=== PATIENT | female | born 1975 | race African-American/Black ===

== ENCOUNTER 2024-09-13 16:57 | Emergency (ER) | payer OTHER ==
[~2024-09-13] VITALS: Ht 172.7 cm; Wt 135.0 kg
[2024-09-13 18:18] VITALS: BP 128/54; PULSE 92; RESP 18; TEMP 97.9; O2SAT 98
[2024-09-13 19:07] LABS: Basophils # (auto) 0 10 ^3/uL (0-0.2); Basophils % (auto) 0.4 % (0.0-2.0); Eosinophils # (auto) 0.1 10 ^3/uL (0-0.8); Eosinophils % (auto) 2.1 % (0.0-7.0); Hematocrit 37.9 % (36.0-46.0); Hemoglobin 12.5 g/dL (12.2-16.2); Lymphocytes # (auto) 2.2 10 ^3/uL (0.4-5.4); Lymphocytes % (auto) 31.8 % (10.0-50.0); Mean Corpuscular Hemoglobin 29.2 pg (28.0-32.0); Mean Corpuscular Hgb Conc. 32.9 g/dL (32.0-36.0); Mean Corpuscular Volume 88.7 fL (80.0-100.0); Monocytes # (auto) 0.5 10 ^3/uL (0-1.3); Monocytes % (auto) 7.5 % (0.0-12.0); Neutrophils # (auto) 4.1 10 ^3/uL (1.6-8.6); Neutrophils % (auto) 58.2 % (37.0-80.0); Nucleated Red Blood Cells % 0.1 %; Platelet Count (auto) 238 10^3/uL (140-450); Red Blood Cells 4.28 10^6/uL (4.0-5.20); Red Cell Distribution Width 13.7 % (11.8-14.3)
--- NOTE | 2024-09-13 19:14 | DVH ---
EXAMINATIONS: 3 views of the thoracic spine 2 views of the lumbar spine CLINICAL HISTORY: pain COMPARISON: None Findings and impression: Mild s-shaped thoracolumbar scoliosis may be in part related to patient positioning. Otherwise no grossly displaced fractures or subluxations of the thoracic or lumbar spine are evident on the provided views. Vertebral body heights appear relatively maintained. The sacroiliac joints are symmetric. T-shaped intrauterine device noted. If there is persistent concern for injury, CT may be obtained to further evaluate.
[2024-09-13 19:22] LABS: Alanine Aminotransferase 18 U/L (7-40); Albumin 4.6 g/dL (3.2-4.8); Alkaline Phosphatase 75 U/L (46-116); Anion Gap 7 (5-15); Aspartate Aminotransferase 17 U/L (13-40); BUN/Creatinine Ratio 15.8 (10.0-20.0); Blood Urea Nitrogen 12 mg/dL (9-23); Calcium 9.8 mg/dL (8.7-10.4); Carbon Dioxide 30 mmol/L (20-31); Chloride 100 mmol/L (98-107); Glucose 94 mg/dL (74-106); Magnesium 1.9 mg/dL (1.6-2.6); Sodium 137 mmol/L (136-145); Total Protein 7.3 g/dL (5.7-8.2)
[2024-09-13 19:23] LABS: Bilirubin, Total 0.3 mg/dL (0.2-1.0)
[2024-09-13 19:31] LABS: Potassium 3.5 mmol/L (3.5-5.1)
[2024-09-13 19:37] LABS: Urine Bacteria FEW /hpf (None Seen); Urine Blood Negative /uL (Negative); Urine Clarity Clear (Clear); Urine Color Light-Yellow (Yellow); Urine Protein, UAD Negative (Negative); Urine Squamous Epithelial Cell FEW /hpf (<5); Urine Urobilinogen Normal (Negative); Urine WBC 3 /HPF (0-5)
--- NOTE | 2024-09-13 19:38 | ED.PDOC ---
Back pain HPI HPI Comments Pt presents to the ER with a C/C of body pain x 1 month. Patient reports a month and a half ago she was positive for COVID. Complaining of mid to low back pain was scheduled for MRI with her PCP she said it is several weeks out and reports concern. Pt reports pain 8/10 at this time, denies any injury. Denies any SOB, CP, N/V or other symptoms Chief Complaint: Body Pain Time Seen by MD: 18:08 Reviewed Notes: Nurses Notes, Medications, Allergies Allergies: Coded Allergies: Sulfa Antibiotics (Verified Allergy, Unknown, 09/13/24) Information Source: Patient Mode of Arrival: Ambulatory Past Medical History PAST MEDICAL HISTORY: Denies Surgical History: Denies all surgeries VALUE ANALYST History: No Pertinent VALUE ANALYST History Constitutional: reports: malaise; denies: chills, diaphoresis, fatigue, fever, sweats, weakness, others EENTM: denies: blurred vision, double vision, ear bleeding, ear discharge, ear drainage, ear pain, ear ringing, eye pain, eye redness, hearing loss, mouth pain, mouth swelling, nasal discharge, nose bleeding, nose congestion, nose pain, photophobia, tearing, throat pain, throat swelling, voice changes, others Respiratory: denies: cough, hemoptysis, orthopnea, SOB at rest, shortness of breath, SOB with excertion, stridor, wheezing, others Cardiovascular: denies: chest pain, dizzy spells, diaphoresis, Dyspnea on exertion, edema, irregular heart beat, left arm pain, lightheadedness, palpitations, PND, syncope, others Gastrointestinal: denies: abdomen distended, abdominal pain, blood streaked bowels, constipated, diarrhea, dysphagia, difficulty swallowing, hematemesis, melena, nausea, poor appetite, poor fluid intake, rectal bleeding, rectal pain, vomiting, others Genitourinary: denies: abnormal vagina bleeding, burning, dyspareunia, dysuria, flank pain, frequency, hematuria, incontinence, pain, , vagina discharge, urgency, others Neurological: denies: dizziness, fainting, headache, left sided numbness, left sided weakness, numbness, paresthesia, pre-existing deficit, right sided numbness, right sided weakness, seizure, speech problems, tingling, tremors, weakness, others Musculoskeletal: reports: back pain; denies: gout, joint pain, joint swelling, muscle pain, muscle stiffness, neck pain, others Integumetry: denies: bruises, change in color, change in hair/nails, dryness, laceration, lesions, lumps, rash, wounds, others Allergic/Immunocompromised: denies: Difficulty Healing, Frequent Infections, Hives, Itching, others Hematologic/Lymphatic: denies: anemia, blood clots, easy bleeding, easy bruising, swollen glands, others Endocrine: denies: excessive hunger, excessive sweating, excessive thirst, excessive urination, flushing, intolerance to cold, intolerance to heat, unexplained weight gain, unexplained weight loss, others Psychiatric: denies: anxiety, bipolar disorder, depression, hopeless, panic disorder, schizophrenia, sleepless, suicidal, others Physical Exam General Appearance: No Apparent Distress, Normal HEENT: Normal ENT Inspection, Pharynx Normal, TMs Normal Neck: Full Range of Motion, Non-Tender Respiratory: Chest Non-Tender, Lungs Clear, No Accessory Muscle Use, No Respiratory Distress, Normal Breath Sounds Cardiovascular: No Edema, No JVD, No Murmur, No Gallop, Normal Peripheral Pulses, Regular Rate/Rhythm Breast Exam: Deferred Gastrointestinal: No Organomegaly, Non Tender, No Pulsatile Mass, Normal Bowel Sounds, Soft Genitalia: Deferred Pelvic: Deferred Rectal: Deferred Extremities: No calf tenderness, Normal capillary refill, Normal inspection, Normal range of motion, Non-tender, No pedal edema Musculoskeletal : Apperance: Normal Neurologic: Alert, power press tender II-XII nml as Tested, No Motor Deficits, Normal Affect, Normal Mood, No Sensory Deficits Cerebellar Function: Normal Reflexes: Normal Skin: Dry, Normal Color, Warm Lymphatic: No Adenopathy Was a procedure done? Was a procedure done?: No Back Pain Differential Dx Differential Diagnosis: Fracture, Musculoskeletal Pain X-Ray, Labs, Meds, VS Vital Signs Date Time Temp Pulse Resp B/P (MAP) Pulse Ox O2 Delivery O2 Flow Rate FiO2 09/13/24 18:18 97.9 92 18 128/54 (78) 98 97.9 09/13/24 18:18 92 18 98 Room Air 09/13/24 17:41 97.9 92 18 128/54 (78) 98 Lab Test 09/13/24 18:47 09/13/24 18:22 Range/Units White Blood Count 7.0 4.4-10.8 10^3/uL Red Blood Count 4.28 4.0-5.20 10^6/uL Hemoglobin 12.5 12.2-16.2 g/dL Hematocrit 37.9 36.0-46.0 % Mean Corpuscular Volume 88.7 80.0-100.0 fL Mean Corpuscular Hemoglobin 29.2 28.0-32.0 pg Mean Corpuscular Hemoglobin Concent 32.9 32.0-36.0 g/dL Red Cell Distribution Width 13.7 11.8-14.3 % Platelet Count 238 140-450 10^3/uL Mean Platelet Volume 9.4 6.9-10.8 fL Neutrophils (%) (Auto) 58.2 37.0-80.0 % Lymphocytes (%) (Auto) 31.8 10.0-50.0 % Monocytes (%) (Auto) 7.5 0.0-12.0 % Eosinophils (%) (Auto) 2.1 0.0-7.0 % Basophils (%) (Auto) 0.4 0.0-2.0 % Neutrophils # (Auto) 4.1 1.6-8.6 10 ^3/uL Lymphocytes # (Auto) 2.2 0.4-5.4 10 ^3/uL Monocytes # (Auto) 0.5 0-1.3 10 ^3/uL Eosinophils # (Auto) 0.1 0-0.8 10 ^3/uL Basophils # (Auto) 0 0-0.2 10 ^3/uL Nucleated Red Blood Cells 0.1 % Erythrocyte Sedimentation Rate 13 0-20 mm/hr Sodium Level 137 136-145 mmol/L Potassium Level 3.5 3.5-5.1 mmol/L Chloride Level 100 98-107 mmol/L Carbon Dioxide Level 30 20-31 mmol/L Anion Gap 7 5-15 Blood Urea Nitrogen 12 9-23 mg/dL Creatinine 0.76 0.550-1.02 mg/dL Glomerular Filtration Rate Calc 97 >90 mL/min BUN/Creatinine Ratio 15.8 10.0-20.0 Serum Glucose 94 74-106 mg/dL Calcium Level 9.8 8.7-10.4 mg/dL Magnesium Level 1.9 1.6-2.6 mg/dL Total Bilirubin 0.3 0.2-1.0 mg/dL Aspartate Amino Transferase (AST) 17 13-40 U/L Alanine Aminotransferase (ALT) 18 7-40 U/L Alkaline Phosphatase 75 46-116 U/L Total Protein 7.3 5.7-8.2 g/dL Albumin 4.6 3.2-4.8 g/dL Urine Color Light-yellow Yellow Urine Clarity Clear Clear Urine pH 7.0 5.0-9.0 Urine Specific [place] 1.010 1.001-1.035 Urine Protein Negative Negative Urine Ketones Negative Negative Urine Blood Negative Negative /uL Urine Nitrite Negative Negative Urine Bilirubin Negative Negative Urine Urobilinogen Normal Negative mg/dL Urine Leukocyte Esterase Negative Negative /uL Urine RBC 1 0 - 4 /hpf Urine Microscopic WBC 3 0-5 /HPF Urine Squamous Epithelial Cells Few <5 /hpf Urine Bacteria Few H None Seen /hpf Urine Glucose Normal Normal mg/dL Current Medications Medications (Trade) Dose Ordered Sig/Kavon Route Start Time Stop Time Status Last Admin Ketorolac Tromethamine (Toradol Injection) 60 mg ONCE ONCE IM 09/13/24 19:45 09/13/24 19:46 DC 09/13/24 19:43 X-Ray, Labs, Meds, VS Comment Thoracic spine shows mild scoliosis. Lumbar spine no acute fractures or osseous lesions. Subluxations throughout the spine. Advised patient to follow up with her PCP for schedule an MRI if symptoms persist. Lab work within normal limits no abnormal findings. Likely acute post COVID syndrome. States PCP prescribed vitamin-D advised to continue with her PCPs plan of care. Back up within 1-2 days. Advised to rest increase p.o. fluids with electrolytes ER return precautions given patient indicates understanding and agrees with discharge plan of care. Time of 1ST Reevaluation: 20:23 Reevaluation 1ST: Improved Patient Education/Counseling: Diagnosis, Treatment, Prognosis, Need For Follow Up Family Education/Counseling: No Family Present Departure 1 Departure Time of Disposition: 20:06 Impression: Primary Impression: Post-acute COVID-19 syndrome Additional Impressions: Low back strain Qualified Codes: S39.012A - Strain of muscle, fascia and tendon of lower back, initial encounter Strain of thoracic back region Disposition: HOME / SELF CARE / HOMELESS Condition: Stable Discharged With: Self Critical Care Note Critical Care Time?: No Stability Stability form required: EVENS Mota Sep 13, 2024 19:38
[2024-09-13] MEDS: KETOROLAC TROMETH 60MG/2ML VIAL IM ONE (19:43)
[2024-09-13 19:44] LABS: Erythrocyte Sedimentation Rate 13 mm/hr (0-20)
== END 2024-09-13 20:17 | disposition home or self-care (01) ==
LOC: ER 16:57
DX: U07.1 COVID-19 (principal); S29.012A Strain of muscle and tendon of back wall of thorax, initial encounter; S39.012A Strain of muscle, fascia and tendon of lower back, initial encounter; Z79.899 Other long term (current) drug therapy; Z88.2 Allergy status to sulfonamides; Y93.89 Activity, other specified; X58.XXXA Exposure to other specified factors, initial encounter; Y92.89 Other specified places as the place of occurrence of the external cause; Y99.8 Other external cause status
CPT/HCPCS: 36415; 72070; 72100; 80053; 81001; 83735; 85025; 85652; 96372; 99284; J1885

== ENCOUNTER 2024-10-14 05:49 | Inpatient (IN) | payer OTHER ==
[~2024-10-14] VITALS: Ht 172.7 cm; Wt 136.0 kg
--- NOTE | 2024-10-14 06:36 | ED.PDOC ---
Musculoskeletal HPI Comments 49 y.o female with PMHx of HTN, hypothyroidism and PreDM, presents to the ED for a chief complaint of bilateral lower extremity swelling that started last night. Patient report recently being placed on Clonidine by her PCP but is also on hydrochlorothiazide. Patient also complains of palpitations, described as "heart skipping a beat" associated with SOB that has been ongoing for a couple of days. Patient denies any chest pain, fever, chills, nausea, vomiting, abdominal pain, back pain, or leg pain. Chief Complaint: Extremity Swelling Time Seen by MD: 06:14 Reviewed Notes: Nurses Notes, Medications, Allergies Allergies: Coded Allergies: Sulfa Antibiotics (Verified Allergy, Unknown, 09/13/24) Information Source: Patient Mode of Arrival: Ambulatory Location: Bilateral Extremity Location: Leg Timing: Hours Severity: Moderate Able to Move Extremity: Yes Bear Weight: Fully Mechanism: None Circumstances: Spontaneous Onset of Symptoms: Spontaneous Symptoms: Swelling DVT Risk Factors: NONE Associated signs and symptoms: Swelling, SOB Past Medical History PAST MEDICAL HISTORY: DM (pre ), HTN, Thyroid Surgical History: Cholecystectomy STRIPPER BLACK AND WHITE History: No Pertinent STRIP[employer] BLACK [employer] WHITE History Family History Family History: Reviewed,noncontributory to illness Social History Smoker: Non-Smoker Alcohol: Denies ETOH Use Drugs: Denies Drug Use Lives In: Home Constitutional: denies: chills, diaphoresis, fatigue, fever, malaise, sweats, weakness, others EENTM: denies: blurred vision, double vision, ear bleeding, ear discharge, ear drainage, ear pain, ear ringing, eye pain, eye redness, hearing loss, mouth pain, mouth swelling, nasal discharge, nose bleeding, nose congestion, nose pain, photophobia, tearing, throat pain, throat swelling, voice changes, others Respiratory: reports: SOB at rest, shortness of breath; denies: cough, hemoptysis, orthopnea, SOB with excertion, stridor, wheezing, others Cardiovascular: reports: palpitations; denies: chest pain, dizzy spells, diaphoresis, Dyspnea on exertion, edema, irregular heart beat, left arm pain, lightheadedness, PND, syncope, others Gastrointestinal: denies: abdomen distended, abdominal pain, blood streaked bowels, constipated, diarrhea, dysphagia, difficulty swallowing, hematemesis, melena, nausea, poor appetite, poor fluid intake, rectal bleeding, rectal pain, vomiting, others Genitourinary: denies: abnormal vagina bleeding, burning, dyspareunia, dysuria, flank pain, frequency, hematuria, incontinence, pain, , vagina discharge, urgency, others Neurological: denies: dizziness, fainting, headache, left sided numbness, left sided weakness, numbness, paresthesia, pre-existing deficit, right sided numbness, right sided weakness, seizure, speech problems, tingling, tremors, weakness, others Musculoskeletal: reports: others (leg swelling ); denies: back pain, gout, joint pain, joint swelling, muscle pain, muscle stiffness, neck pain Integumetry: denies: bruises, change in color, change in hair/nails, dryness, laceration, lesions, lumps, rash, wounds, others Allergic/Immunocompromised: denies: Difficulty Healing, Frequent Infections, Hives, Itching, others Hematologic/Lymphatic: denies: anemia, blood clots, easy bleeding, easy bruising, swollen glands, others Endocrine: denies: excessive hunger, excessive sweating, excessive thirst, excessive urination, flushing, intolerance to cold, intolerance to heat, unexplained weight gain, unexplained weight loss, others Psychiatric: denies: anxiety, bipolar disorder, depression, hopeless, panic disorder, schizophrenia, sleepless, suicidal, others All Other Systems: Reviewed and Negative Physical Exam General Appearance: Moderate Distress HEENT: Normal ENT Inspection, Pharynx Normal, TMs Normal Neck: Full Range of Motion, Non-Tender, Normal, Normal Inspection Respiratory: Chest Non-Tender, Lungs Clear, No Accessory Muscle Use, No Respiratory Distress, Normal Breath Sounds Cardiovascular: No Edema, No JVD, No Murmur, No Gallop, Normal Peripheral Pulses, Regular Rate/Rhythm Breast Exam: Deferred Gastrointestinal: No Organomegaly, Non Tender, No Pulsatile Mass, Normal Bowel Sounds, Soft Genitalia: Deferred Pelvic: Deferred Rectal: Deferred Extremities: No calf tenderness, Normal range of motion, No pedal edema, Swelling (1+ pitting) Musculoskeletal : Apperance: Normal Neurologic: Alert, web content manager II-XII nml as Tested, No Motor Deficits, Normal Affect, Normal Mood, No Sensory Deficits Cerebellar Function: Normal Reflexes: Normal Skin: Dry, Normal Color, Warm Peripheral Pulses: 3+ Radial (R), 3+ Radial (L) Lymphatic: No Adenopathy Was a procedure done? Was a procedure done?: No EKG EKG : Pulse Rate (adult): 75 Cardiac Rhythm: NSR Differential Diagnosis EXT Differential Diagnosis: Cellulitis, CHF, Deep Vein Thrombosis, Sprain, Gout X-Ray, Labs, Meds, VS Vital Signs Date Time Temp Pulse Resp B/P (MAP) Pulse Ox O2 Delivery O2 Flow Rate FiO2 10/14/24 06:36 75 10/14/24 06:35 75 10/14/24 06:18 98.5 73 18 142/86 (104) 96 98.5 Patient alert. Complaining of bilateral lower extremity swelling shortness a breath. Blood pressure slightly elevated. She does have a history of thyroid. Palpitations for the past few days. EKG reviewed does not show any acute changes. Possible cardiomyopathy. Reviewed her history. Explained to the patient. Continue cardiac monitoring. Time of 1ST Reevaluation: 06:32 Reevaluation 1ST: Unchanged Patient Education/Counseling: Diagnosis, Treatment, Prognosis Family Education/Counseling: No Family Present Departure 1 Departure Time of Disposition: 06:44 Impression: Primary Impression: Hypertensive cardiomyopathy Qualified Codes: I11.9 - Hypertensive heart disease without heart failure; I43 - Cardiomyopathy in diseases classified elsewhere Additional Impression: HTN (hypertension) Qualified Codes: I10 - Essential (primary) hypertension Disposition: ADMITTED INPATIENT Admit to: Med Surg Condition: Guarded Critical Care Note Critical Care Time?: No Stability Stability form required: No Heart Score Heart Score: Heart Score Response (Comments) Value History Moderate Suspicious 1 EKG Normal 0 Age 45-64 1 Risk Factors 1 or 2 risk factors 1 Troponin Normal limit 0 Total 3 I personally scribed for VENUS NEFF MD ([email or web address]) on 10/14/24 at 06:36. Electronically submitted by Nella Khanna ([facility]). VENUS NEFF MD Oct 14, 2024 06:36
--- NOTE | 2024-10-14 07:39 | DVH ---
Bilateral lower extremity venous duplex Clinical History: dvt Comparison: None Findings: Duplex Doppler evaluation of the deep venous systems of both lower extremities from the common femora l veins to the popliteal veins including color Doppler and spectral/pulsed waveform analysis was perf ormed. RIGHT SIDE: The common femoral vein demonstrates appropriate compressibility and waveform variability. There is compressibility/patency of the great saphenous vein at the proximal thigh. The femoral vein demonstrates appropriate compressibility and waveform variability. The deep femoral vein demonstrates appropriate compressibility and waveform variability. The popliteal vein demonstrates appropriate compressibility and waveform variability. There is normal compressibility at the tibioperoneal trunk. LEFT SIDE: The common femoral vein demonstrates appropriate compressibility and waveform variability. There is compressibility/patency of the great saphenous vein at the proximal thigh. The femoral vein demonstrates appropriate compressibility and waveform variability. The deep femoral vein demonstrates appropriate compressibility and waveform variability. The popliteal vein demonstrates appropriate compressibility and waveform variability. There is normal compressibility at the tibioperoneal trunk. Impression: 1. No deep venous thrombosis in the bilateral lower extremities.
--- NOTE | 2024-10-14 07:45 | DVH ---
CHEST RADIOGRAPH Indication: sob Technique: Single frontal view of the chest was obtained COMPARISON: None FINDINGS: Lines and Tubes: None Lungs: Clear Pleura: No effusion. No pneumothorax. Cardiomediastinal contours: Unremarkable Bones: Unremarkable IMPRESSION: No acute disease.
[2024-10-14] MEDS ORDERED: NITROGLYCERIN 0.4 MG SL TAB SL PRN (08:15)
[2024-10-14] MEDS ORDERED: MORPHINE SULFATE INJ 2 MG/ml SYRG IV PRN ×2 (08:15)
[2024-10-14] MEDS ORDERED: HYDROcodone-ACET 5/325MG TAB PO PRN (08:15)
[2024-10-14] MEDS ORDERED: ACETAMINOPHEN 325 MG TAB PO PRN (08:15)
[2024-10-14 08:34] LABS: Basophils # (auto) 0.1 10 ^3/uL (0-0.2); Basophils % (auto) 0.8 % (0.0-2.0); Eosinophils # (auto) 0.2 10 ^3/uL (0-0.8); Eosinophils % (auto) 2.7 % (0.0-7.0); Hemoglobin 12.3 g/dL (12.2-16.2); Lymphocytes % (auto) 40.5 % (10.0-50.0); Mean Corpuscular Hemoglobin 29.4 pg (28.0-32.0); Mean Corpuscular Hgb Conc. 33.2 g/dL (32.0-36.0); Mean Corpuscular Volume 88.7 fL (80.0-100.0); Monocytes # (auto) 0.6 10 ^3/uL (0-1.3); Monocytes % (auto) 8.6 % (0.0-12.0); Neutrophils # (auto) 3.5 10 ^3/uL (1.6-8.6); Neutrophils % (auto) 47.4 % (37.0-80.0); Platelet Count (auto) 239 10^3/uL (140-450); Red Blood Cells 4.17 10^6/uL (4.0-5.20); Red Cell Distribution Width 13.9 % (11.8-14.3); White Blood Cell 7.4 10^3/uL (4.4-10.8)
[2024-10-14 08:36] LABS: Chloride 104 mmol/L (98-107); Potassium 3.7 mmol/L (3.5-5.1); Sodium 138 mmol/L (136-145)
[2024-10-14 08:37] LABS: Anion Gap 3 (5-15); Carbon Dioxide 31 mmol/L (20-31)
[2024-10-14 08:38] LABS: Calcium 9.6 mg/dL (8.7-10.4)
[2024-10-14 08:42] LABS: BUN/Creatinine Ratio 10.6 (10.0-20.0); Blood Urea Nitrogen 10 mg/dL (9-23); Glucose 96 mg/dL (74-106)
[2024-10-14] MEDS: ENOXAPARIN SOD 40 MG/0.4 ML SYRINGE SC SCH (10:44)
[2024-10-14 11:02] VITALS: BP 121/75; PULSE 65; RESP 14; TEMP 97.4; O2SAT 95
[2024-10-14] MEDS ORDERED: HYDR12.59 PO (11:54)
[2024-10-14] MEDS ORDERED: LORA-1121 PO (11:54)
[2024-10-14] MEDS ORDERED: LEVO-848 PO (11:54)
[2024-10-14] MEDS ORDERED: PREG75CA90 PO (11:54)
[2024-10-14] MEDS ORDERED: CHOL20007 PO (11:54)
[2024-10-14] MEDS ORDERED: DULO60CA41 PO (11:54)
[2024-10-14] MEDS ORDERED: TRAZ-184 PO (11:54)
[2024-10-14] MEDS ORDERED: AML5T PO (11:54)
[2024-10-14] MEDS ORDERED: CLON0.1T PO (11:54)
[2024-10-14] MEDS ORDERED: HYDR-4902 PO (11:54)
[2024-10-14] MEDS ORDERED: PANT1INJ3 PO (11:54)
[2024-10-14 12:00] VITALS: BP 136/76; PULSE 63; RESP 16; TEMP 97.4; O2SAT 100
[2024-10-14 15:04] LABS: Urine Bacteria FEW /hpf (None Seen); Urine Blood Negative /uL (Negative); Urine Clarity Clear (Clear); Urine Color Light-Yellow (Yellow); Urine Protein, UAD Negative (Negative); Urine Specific Gravity 1.008 (1.001-1.035); Urine Squamous Epithelial Cell FEW /hpf (<5); Urine Urobilinogen Normal (Negative); Urine WBC 2 /HPF (0-5); Urine pH 6.5 (5.0-9.0)
[2024-10-14 15:51] VITALS: BP 116/71; PULSE 62; RESP 16; TEMP 97.5; O2SAT 99
--- NOTE | 2024-10-14 16:18 | DVHSR ---
APPROVED REPORT EXAM: Two-dimensional and M-mode echocardiogram with Doppler and color Doppler. Blood Pressure: 141/91 mmHg INDICATION CHF RISK FACTORS Obesity: Height: 5' 8", Weight: 300 DIMENSIONS LVDd4.7 (3.8-5.7cm)LA (2D)4.4 (1.9-4.0cm)Aortic Root3.2 (2.0-3.7cm) LVDs3.2 (2.5-4.0cm)LA (MM) (1.9-4.0cm)Aortic Cusp Exc2.0 (1.5-2.0cm) EF (%) 60.0 (55-70%)Rt. Atrium4.5 (1.9-4.0cm)Asc. Aorta cm IVSd1.1 (0.7-1.1cm)RV (D) (1.8-2.4cm) PWd1.1 (0.7-1.1cm) Mitral Valve MitralMitral Stenosis E wave0.90m/sMV Mean GR.mmHg A wave0.70m/sMV Peak GR.mmHg E/A ratio1.32D MVAcm2 Aortic Valve Aortic ValveAortic Stenosis V10.90m/Andrew Mean GR.4mmHg V21.40m/Andrew Peak GR.8mmHg LVOT Diameter2.5 (1.8-2.4cm)Doppler AVA3.15cm2 Pulmonic Valve V20.60m/s Tricuspid Valve TR Velocity2.10m/s [id number] Conclusion lvef 55% by visual estimate normal rv function boderline left atrium enlarged no severe valve abnormalities noted
--- NOTE | 2024-10-14 18:02 | DVHHP2 ---
History of Present Illness Reason for Visit: Bilateral lower extremity swelling History of Present Illness Patient presents to emergency room for bilateral lower extremity swelling, patient does take amlodipine at home. Patient reports being recently prescribed clonidine and developed bilateral lower extremity swelling and associated palpitations. Review of Systems Constitutional: No: Fever, Chills, Sweats, Weakness, Malaise, Other Respiratory: No: Cough, Dry, Shortness of breath, SOB with excertion, Wheezing, Hemoptysis, Pleuritic Pain, Sputum, Wheezing, Other Cardiovascular: No: Chest Pain, Palpitations, Orthopnea, Paroxysmal Noc. Dyspnea, Edema, Lt Headedness, Other Gastrointestinal: No: Nausea, Vomiting, Abdominal Pain, Diarrhea, Constipation, Melena, Hematochezia, Other Allergies: Coded Allergies: Sulfa Antibiotics (Verified Allergy, Unknown, 09/13/24) Medications Current Medications Medications Dose Ordered Sig/Kavon Route Start Time Stop Time Status Last Admin Dose Admin Acetaminophen/ Hydrocodone Bitart 1 tab Q4HP PRN PO 10/14/24 08:15 Enoxaparin Sodium 40 mg DAILY SC 10/14/24 10:00 10/14/24 10:44 40 MG Acetaminophen 650 mg Q6HP PRN PO 10/14/24 08:15 Morphine Sulfate 2 mg Q4HPRN PRN IV 10/14/24 08:15 Nitroglycerin 0.4 mg Q5MINP PRN SL 10/14/24 08:15 Morphine Sulfate 2 mg Q30M PRN IV 10/14/24 08:15 Furosemide 20 mg DAILY IV 10/15/24 10:00 Potassium Chloride 20 meq DAILY PO 10/15/24 10:00 Exam Vital Signs Vital Signs Date Time Temp Pulse Resp B/P (MAP) Pulse Ox O2 Delivery O2 Flow Rate FiO2 10/14/24 15:51 97.5 62 16 116/71 (86) 99 97.5 10/14/24 11:02 Room Air* 0 21 General Appearance: Alert, Oriented X3, Cooperative, No acute distress HEENT: Atraumatic Respiratory: Clear to auscultation, Normal air movement Cardiovascular: Regular rate, Normal S1, Normal S2, No murmurs Abdominal: Normal bowel sounds, Soft, No tenderness, No hepatospenomegaly Extremities: No clubbing, No cyanosis Labs/Xrays Labs Test 10/14/24 14:56 10/14/24 08:17 Range/Units Urine Color Light-yellow Yellow Urine Clarity Clear Clear Urine pH 6.5 5.0-9.0 Urine Specific [place] 1.008 1.001-1.035 Urine Protein Negative Negative Urine Ketones Negative Negative Urine Blood Negative Negative /uL Urine Nitrite Negative Negative Urine Bilirubin Negative Negative Urine Urobilinogen Normal Negative mg/dL Urine Leukocyte Esterase Negative Negative /uL Urine RBC 1 0 - 4 /hpf Urine Microscopic WBC 2 0-5 /HPF Urine Squamous Epithelial Cells Few <5 /hpf Urine Bacteria Few H None Seen /hpf Urine Glucose Normal Normal mg/dL White Blood Count 7.4 4.4-10.8 10^3/uL Red Blood Count 4.17 4.0-5.20 10^6/uL Hemoglobin 12.3 12.2-16.2 g/dL Hematocrit 37.0 36.0-46.0 % Mean Corpuscular Volume 88.7 80.0-100.0 fL Mean Corpuscular Hemoglobin 29.4 28.0-32.0 pg Mean Corpuscular Hemoglobin Concent 33.2 32.0-36.0 g/dL Red Cell Distribution Width 13.9 11.8-14.3 % Platelet Count 239 140-450 10^3/uL Mean Platelet Volume 9.2 6.9-10.8 fL Neutrophils (%) (Auto) 47.4 37.0-80.0 % Lymphocytes (%) (Auto) 40.5 10.0-50.0 % Monocytes (%) (Auto) 8.6 0.0-12.0 % Eosinophils (%) (Auto) 2.7 0.0-7.0 % Basophils (%) (Auto) 0.8 0.0-2.0 % Neutrophils # (Auto) 3.5 1.6-8.6 10 ^3/uL Lymphocytes # (Auto) 3.0 0.4-5.4 10 ^3/uL Monocytes # (Auto) 0.6 0-1.3 10 ^3/uL Eosinophils # (Auto) 0.2 0-0.8 10 ^3/uL Basophils # (Auto) 0.1 0-0.2 10 ^3/uL Nucleated Red Blood Cells 0.0 % Sodium Level 138 136-145 mmol/L Potassium Level 3.7 3.5-5.1 mmol/L Chloride Level 104 98-107 mmol/L Carbon Dioxide Level 31 20-31 mmol/L Anion Gap 3 L 5-15 Blood Urea Nitrogen 10 9-23 mg/dL Creatinine 0.94 0.550-1.02 mg/dL Glomerular Filtration Rate Calc 75 >90 mL/min BUN/Creatinine Ratio 10.6 10.0-20.0 Serum Glucose 96 74-106 mg/dL Calcium Level 9.6 8.7-10.4 mg/dL Troponin I High Sensitivity < 3 L </=34 ng/L Assessment/Plan Assessment/Plan 1. Lower extremity swelling rule out CHF likely from adverse medication reaction IV Lasix, hold amlodipine, obtain echo, cardiac consult 2. Hypothyroidism Continue levothyroxine 50 mcg, repeat TSH and T4 3. Hypertension Antihypertensives 4. Morbid obesity Plan discussed with: Patient My Orders Orders - LUCA HUFFMAN Procedure Category Date Status Time Admit ADMIT 10/14/24 Transmitted 08:10 Hydrocodone-Acet PHA 10/14/24 In Process 5/325mg Tab ([place] 08:15 Enoxaparin Sodium PHA 10/14/24 In Process (Lovenox) 10:00 Cardiac DIET 10/14/24 Transmitted Diet-2gna,Lofat,Lochol Breakfast Echo 2d Mode Cardiac US 10/14/24 Resulted DOP 08:10 Acetaminophen Tablet PHA 10/14/24 In Process (Tylenol Tablet) 08:15 Morphine Sulfate PHA 10/14/24 In Process Injection 08:15 Nitroglycerin PHA 10/14/24 In Process Sublingual (Ntrostat 08:15 Morphine Sulfate PHA 10/14/24 In Process Injection 08:15 Stat Ekg For Chest CHANDLER 10/14/24 In Process Pain 08:10 Notify Of Changes CHANDLER 10/14/24 In Process From Base 08:10 Informatics Spec For CHANDLER 10/14/24 In Process 24 Hours 08:10 Emergency Dysrhythmia CHANDLER 10/14/24 In Process Protocol 08:10 Rhythm Strips Once CHANDLER 10/14/24 In Process Every Shift 08:10 Oxygen By Nasal RT 10/14/24 Transmitted Cannula 08:10 * Cardiology Consult CONS 10/14/24 Transmitted 08:10 Communication Order ORDERS 10/14/24 Transmitted 08:11 Furosemide Injection PHA 10/15/24 In Process (Lasix Injection) 10:00 Potassium Er Tablet PHA 4/14/25 In Process (Klor-Con Tablet) 10:00 Levothyroxine Tablet PHA 10/15/24 Logged (Synthroid Tablet) 10:00 Pregabalin Capsule PHA 10/15/24 Logged (Lyrica Capsule) 10:00 Thyroid Stimulating LAB 10/14/24 Transmitted Hormone 17:54 Free T4 (Free LAB 10/14/24 Transmitted Thyroxine) 17:54 Date of Service: Oct 14, 2024 Billing Provider: EMILY VAZQUEZ MD Common Visit Codes: [id number] INP/OBS CARE (MOD) LUCA HUFFMAN SHEAR SETTER Oct 14, 2024 18:02
[2024-10-14 20:00] VITALS: BP 147/82; PULSE 67; RESP 16; TEMP 97.5; O2SAT 95
--- NOTE | 2024-10-14 22:05 | DVHINCON2 ---
Date of service: Oct 14, 2024 History of Present Illness HPI Patient is a 49-year-old female who presented with bilateral leg swellings lasting few days and palpitations. She mentions that she was started by her outside physician on clonidine and she felt with a bilateral leg swellings and decided come to the hospital. Denies chest pains. Cardiology is involved for cardiac aspects of care. Home Meds Reported Medications Lorazepam (ATIVAN TABLET) 0.5 Mg Tb, 1 TAB PO DAILY, #30 TAB 10/14/24 Pantoprazole Sodium (PANTOPRAZOLE SODIUM) 40 Mg Inj, 40 MG PO, INJ 10/14/24 Amlodipine Besylate (NORVASC TABLET) 5 Mg Tb, 5 MG PO, TAB 10/14/24 Duloxetine Hcl (Cymbalta) 60 Mg Cap, 100 MG PO, CAP 10/14/24 Levothyroxine Sodium (SYNTHROID TABLET) 50 Mcg Tb, 50 MCG PO, TAB 10/14/24 Pregabalin (Pregabalin) 75 Mg Cap, 75 MG PO, CAP 10/14/24 Clonidine Hydrochloride (Clonidine Hcl) 0.1 Mg Tab, 0.1 MG PO BID, TAB 10/14/24 Hydrochlorothiazide (Hydrochlorothiazide) 12.5 Mg Cap, 12.5 MG PO, CAP 10/14/24 Trazodone HCl (Trazodone Hydrocloride) 100 Mg Tab, 100 MG PO, TAB 10/14/24 Cholecalciferol (VITAMIN D3) 2,000 Unit Tab, 2000 UNIT PO, TAB 10/14/24 Hydrocodone-Acetaminophen (Hydrocodone Bitartrate/AC 5-325 mg) 1 Tab Tab, 1 TAB PO, TAB 10/14/24 Past Medical History Others Past medical history includes morbid obesity, hypertension, hypothyroidism and prediabetes Patient Family History: Chronic obstructive pulmonary disease G8 MOTHER G8 FATHER Diabetes mellitus G8 MOTHER G8 FATHER FH: CHF (congestive heart failure) G8 MOTHER G8 FATHER FH: hyperlipidemia G8 MOTHER G8 FATHER Hypertension G8 MOTHER G8 FATHER Drugs: None Review of Systems All Other Systems Fourteen point review of system was performed. Relevant findings as per above and as per HPI. Otherwise negative H&P Exam Vital Signs Vital Signs Date Time Temp Pulse Resp B/P (MAP) Pulse Ox O2 Delivery O2 Flow Rate FiO2 10/14/24 15:51 97.5 62 16 116/71 (86) 99 97.5 10/14/24 11:02 Room Air* 0 21 General Appeara: Well developed, Obese Head Exam: Normal inspection Eye Exam: bilateral eye PERRL Pulmonary/Respiratory: Lungs clear Cardiovascular/Chest: Regular rate Peripheral Pulses: 2+ carotid (R), 2+ carotid (L), 2+ femoral (R), 2+ femoral (L), 2+ dorsalis pedis (R) Abdominal Exam: Normal bowel sounds, Soft Appearance: Appropriate appearance Eye contact/ Speech: Cooperative, Good eye contact Thoughts/Psych: Normal thought pattern Labs/Xrays Labs Test 10/14/24 14:56 10/14/24 08:17 Range/Units Urine Color Light-yellow Yellow Urine Clarity Clear Clear Urine pH 6.5 5.0-9.0 Urine Specific [place] 1.008 1.001-1.035 Urine Protein Negative Negative Urine Ketones Negative Negative Urine Blood Negative Negative /uL Urine Nitrite Negative Negative Urine Bilirubin Negative Negative Urine Urobilinogen Normal Negative mg/dL Urine Leukocyte Esterase Negative Negative /uL Urine RBC 1 0 - 4 /hpf Urine Microscopic WBC 2 0-5 /HPF Urine Squamous Epithelial Cells Few <5 /hpf Urine Bacteria Few H None Seen /hpf Urine Glucose Normal Normal mg/dL White Blood Count 7.4 4.4-10.8 10^3/uL Red Blood Count 4.17 4.0-5.20 10^6/uL Hemoglobin 12.3 12.2-16.2 g/dL Hematocrit 37.0 36.0-46.0 % Mean Corpuscular Volume 88.7 80.0-100.0 fL Mean Corpuscular Hemoglobin 29.4 28.0-32.0 pg Mean Corpuscular Hemoglobin Concent 33.2 32.0-36.0 g/dL Red Cell Distribution Width 13.9 11.8-14.3 % Platelet Count 239 140-450 10^3/uL Mean Platelet Volume 9.2 6.9-10.8 fL Neutrophils (%) (Auto) 47.4 37.0-80.0 % Lymphocytes (%) (Auto) 40.5 10.0-50.0 % Monocytes (%) (Auto) 8.6 0.0-12.0 % Eosinophils (%) (Auto) 2.7 0.0-7.0 % Basophils (%) (Auto) 0.8 0.0-2.0 % Neutrophils # (Auto) 3.5 1.6-8.6 10 ^3/uL Lymphocytes # (Auto) 3.0 0.4-5.4 10 ^3/uL Monocytes # (Auto) 0.6 0-1.3 10 ^3/uL Eosinophils # (Auto) 0.2 0-0.8 10 ^3/uL Basophils # (Auto) 0.1 0-0.2 10 ^3/uL Nucleated Red Blood Cells 0.0 % Sodium Level 138 136-145 mmol/L Potassium Level 3.7 3.5-5.1 mmol/L Chloride Level 104 98-107 mmol/L Carbon Dioxide Level 31 20-31 mmol/L Anion Gap 3 L 5-15 Blood Urea Nitrogen 10 9-23 mg/dL Creatinine 0.94 0.550-1.02 mg/dL Glomerular Filtration Rate Calc 75 >90 mL/min BUN/Creatinine Ratio 10.6 10.0-20.0 Serum Glucose 96 74-106 mg/dL Calcium Level 9.6 8.7-10.4 mg/dL Troponin I High Sensitivity < 3 L </=34 ng/L Thyroid Stimulating Hormone (TSH) 4.07 0.55-4.78 uIU/mL Assessment/Plan Plan Patient is a 49-year-old female who presented with bilateral leg swellings lasting few days and palpitations. She mentions that she was started by her [facility] physician on clonidine and she felt with a bilateral leg swellings and decided come to the hospital. Denies chest pains. Cardiology is involved for cardiac aspects of care. Not in acute distress. Morbidly obese female. No JVD. Mucosa is pink and wet. No goiter. Carotid bruit he has not heard. Lungs are clear to auscultation. Abdomen is soft and obese. Somewhat distended. There is no gross mass. Bowel sound is positive. Extremities reveal 2+ edema bilaterally. Dorsalis pedis is 2+ bilateral Past medical history includes morbid obesity, hypertension, hypothyroidism and prediabetes Creatinine: 0.94 Potassium: 3.7 TSH: 4.07 Troponin (high sensitive): <3 Chest x-ray revealed: Venous Doppler of lower extremities revealed: Tele reveals sinus rhythm Echocardiogram reported: lvef 55% by visual estimate; normal rv function; boderline left atrium enlarged; no severe valve abnormalities noted Patient is a 49-year-old female with history of morbid obesity and hypertension. Presented with lower extremity edema. Acute coronary syndrome is not considered. Leg edema Hypertension Hypothyroidism Morbid obesity Cardiac suggestion for management: Manage on telemetry Follow-up electrolytes and kidney function tests and correct abnormalities Long-term full monitor can be arranged as outpatient Avoid clonidine Further evaluation and management depends on the above and clinical course Cardiac-alvarez can be followed as outpatient Thank you for consultation A total of 75 minutes was spent reviewing the patient record, examining the patient, making a diagnostic and therapeutic plan, discussing this plan with medical personnel, following up on diagnostic studies and following the patient for clinical stability excluding any and all procedures. At least 50% of this time was spent in direct, [id number] contact. Thank you for allowing me to participate in this patient's care. Further recommendations will depend on patient's clinical course. Please do not hesitate to contact me if you have any questions or concerns. This medical document was created using electronic medical record system with [employer] computerized dictation system. Although this document has been carefully reviewed, there may still be some phonetic and typographical errors. These areas are purely typographical due to the imperfection of the software programs, and do not reflect any compromise in the patient's medical care. Plan discussed with: Patient, Other (nurse) CATRACHITA VASQUEZ MD Oct 14, 2024 22:05
[2024-10-14] MEDS: DULoxetine HCL 30 MG CAP PO SCH (22:33)
[2024-10-14 23:20] VITALS: BP 141/75; PULSE 69; RESP 17; TEMP 97.8; O2SAT 98
[2024-10-15] VITALS (7 sets, daily range): BP systolic 122–151; BP diastolic 59–89; PULSE 56–74; RESP 16–18; TEMP 36.4; O2SAT 94–99
[2024-10-15] MEDS: LEVOTHYROXINE SODIUM 50 MCG TAB PO SCH (06:05)
--- NOTE | 2024-10-15 08:26 | DVHPN2 ---
Progress Note - Dictate Date Seen: Oct 15, 2024 Medical Necessity Reason Pt with a Central, PICC or Fol: No vital signs Vital Sign Date Time Temp Pulse Resp B/P (MAP) Pulse Ox O2 Delivery O2 Flow Rate FiO2 10/15/24 05:00 97.8 68 18 135/77 (96) 97 97.8 10/14/24 23:20 Room Air* 0 21 Total Intake and Output 10/14/24 10/14/24 10/15/24 15:00 23:00 07:00 Intake Total 150 ml 150 ml Balance 150 ml 150 ml medications Current Medications Medications Dose Ordered Sig/Kavon Route Start Time Stop Time Status Last Admin Dose Admin Acetaminophen/ Hydrocodone Bitart 1 tab Q4HP PRN PO 10/14/24 08:15 Enoxaparin Sodium 40 mg DAILY SC 10/14/24 10:00 10/14/24 10:44 40 MG Acetaminophen 650 mg Q6HP PRN PO 10/14/24 08:15 Morphine Sulfate 2 mg Q4HPRN PRN IV 10/14/24 08:15 Nitroglycerin 0.4 mg Q5MINP PRN SL 10/14/24 08:15 Morphine Sulfate 2 mg Q30M PRN IV 10/14/24 08:15 Furosemide 20 mg DAILY IV 10/15/24 10:00 Potassium Chloride 20 meq DAILY PO 10/15/24 10:00 Levothyroxine Sodium 50 mcg QAM PO 10/15/24 07:00 10/15/24 06:05 50 MCG Pregabalin 75 mg DAILY PO 10/15/24 10:00 Duloxetine HCl 60 mg BID PO 10/14/24 22:00 10/14/24 22:33 60 MG laboratory and microbiology Laboratory Tests 10/14/24 08:17 Test 10/14/24 08:17 Range/Units Serum Glucose 96 74-106 mg/dL Assessment/Plan Patient is a 49-year-old female who presented with bilateral leg swellings lasting few days and palpitations. She mentions that she was started by her outside physician on clonidine and she felt with a bilateral leg swellings and decided come to the hospital. Denies chest pains. Cardiology is involved for cardiac aspects of care. Not in acute distress. Morbidly obese female. No JVD. Mucosa is pink and wet. No goiter. Carotid bruit he has not heard. Lungs are clear to auscultation. Abdomen is soft and obese. Somewhat distended. There is no gross mass. Bowel sound is positive. Extremities reveal 2+ edema bilaterally. Dorsalis pedis is 2+ bilateral Past medical history includes morbid obesity, hypertension, hypothyroidism and prediabetes Creatinine: 0.94 Potassium: 3.7 TSH: 4.07 Troponin (high sensitive): <3 Chest x-ray revealed: IMPRESSION: No acute disease. Venous Doppler of lower extremities revealed: Impression: 1. No deep venous thrombosis in the bilateral lower extremities. Tele reveals sinus rhythm Echocardiogram reported: lvef 55% by visual estimate; normal rv function; boderline left atrium enlarged; no severe valve abnormalities noted Patient is a 49-year-old female with history of morbid obesity and hypertension. Presented with lower extremity edema. Acute coronary syndrome is not considered. Leg edema Hypertension Hypothyroidism Morbid obesity Cardiac suggestion for management: Manage on telemetry Follow-up electrolytes and kidney function tests and correct abnormalities Long-term full monitor can be arranged as outpatient Avoid clonidine Further evaluation and management depends on the above and clinical course Cardiac-alvarez can be followed as outpatient A total of 55 minutes was spent reviewing the patient record, examining the patient, making a diagnostic and therapeutic plan, discussing this plan with medical personnel, following up on diagnostic studies and following the patient for clinical stability excluding any and all procedures. At least 50% of this time was spent in direct, [id number] contact. Thank you for allowing me to participate in this patient's care. Further recommendations will depend on patient's clinical course. Please do not hesitate to contact me if you have any questions or concerns. This medical document was created using electronic medical record system with [employer] computerized dictation system. Although this document has been carefully reviewed, there may still be some phonetic and typographical errors. These areas are purely typographical due to the imperfection of the software programs, and do not reflect any compromise in the patient's medical care. Plan discussed with: Patient, Other (nurse) CATRACHITA VASQUEZ MD Oct 15, 2024 08:26
[2024-10-15] MEDS: POTASSIUM CHL 20 Meq TABLET PO SCH (10:09)
[2024-10-15] MEDS: PREGABALIN CAPSULE 75 MG CAP PO SCH (10:09)
[2024-10-15] MEDS: FUROSEMIDE 20 MG/2 ML VIAL IV SCH (10:10)
[2024-10-15 10:57] LABS: Anion Gap 4 (5-15); Carbon Dioxide 30 mmol/L (20-31); Chloride 106 mmol/L (98-107); Potassium 4.6 mmol/L (3.5-5.1); Sodium 140 mmol/L (136-145)
[2024-10-15 10:58] LABS: Calcium 9.5 mg/dL (8.7-10.4)
[2024-10-15 11:03] LABS: Glucose 103 mg/dL (74-106)
[2024-10-15 11:05] LABS: BUN/Creatinine Ratio 10.7 (10.0-20.0); Blood Urea Nitrogen 9 mg/dL (9-23)
--- NOTE | 2024-10-15 21:50 | DVHDS2 ---
Discharge Summary Date of Admission Oct 14, 2024 at 08:10 Date of Discharge: Oct 15, 2024 Labs/Diagnostic Data: Laboratory Results Test 10/15/24 10:01 10/14/24 14:56 10/14/24 08:17 Sodium Level 140 mmol/L (136-145) Potassium Level 4.6 mmol/L (3.5-5.1) Chloride Level 106 mmol/L (98-107) Carbon Dioxide Level 30 mmol/L (20-31) Anion Gap 4 (5-15) Blood Urea Nitrogen 9 mg/dL (9-23) Creatinine 0.84 mg/dL (0.550-1.02) Glomerular Filtration Rate Calc 86 mL/min (>90) BUN/Creatinine Ratio 10.7 (10.0-20.0) Serum Glucose 103 mg/dL (74-106) Calcium Level 9.5 mg/dL (8.7-10.4) Urine Color Light-yellow (Yellow) Urine Clarity Clear (Clear) Urine pH 6.5 (5.0-9.0) Urine Specific [place] 1.008 (1.001-1.035) Urine Protein Negative (Negative) Urine Ketones Negative (Negative) Urine Blood Negative /uL (Negative) Urine Nitrite Negative (Negative) Urine Bilirubin Negative (Negative) Urine Urobilinogen Normal mg/dL (Negative) Urine Leukocyte Esterase Negative /uL (Negative) Urine RBC 1 /hpf (0 - 4) Urine Microscopic WBC 2 /HPF (0-5) Urine Squamous Epithelial Cells Few /hpf (<5) Urine Bacteria Few /hpf (None Seen) Urine Glucose Normal mg/dL (Normal) White Blood Count 7.4 10^3/uL (4.4-10.8) Red Blood Count 4.17 10^6/uL (4.0-5.20) Hemoglobin 12.3 g/dL (12.2-16.2) Hematocrit 37.0 % (36.0-46.0) Mean Corpuscular Volume 88.7 fL (80.0-100.0) Mean Corpuscular Hemoglobin 29.4 pg (28.0-32.0) Mean Corpuscular Hemoglobin Concent 33.2 g/dL (32.0-36.0) Red Cell Distribution Width 13.9 % (11.8-14.3) Platelet Count 239 10^3/uL (140-450) Mean Platelet Volume 9.2 fL (6.9-10.8) Neutrophils (%) (Auto) 47.4 % (37.0-80.0) Lymphocytes (%) (Auto) 40.5 % (10.0-50.0) Monocytes (%) (Auto) 8.6 % (0.0-12.0) Eosinophils (%) (Auto) 2.7 % (0.0-7.0) Basophils (%) (Auto) 0.8 % (0.0-2.0) Neutrophils # (Auto) 3.5 10 ^3/uL (1.6-8.6) Lymphocytes # (Auto) 3.0 10 ^3/uL (0.4-5.4) Monocytes # (Auto) 0.6 10 ^3/uL (0-1.3) Eosinophils # (Auto) 0.2 10 ^3/uL (0-0.8) Basophils # (Auto) 0.1 10 ^3/uL (0-0.2) Nucleated Red Blood Cells 0.0 % Troponin I High Sensitivity < 3 ng/L (</=34) Thyroid Stimulating Hormone (TSH) 4.07 uIU/mL (0.55-4.78) Free Thyroxine (T4) Calculated 1.01 ng/dL (0.89-1.76) Other Laboratory Tests 10/15/24 10:01 10/14/24 08:17 Brief Hx & Hospital Course: Patient presents to emergency room for bilateral lower extremity swelling, patient does take amlodipine at home. Patient reports being recently prescribed clonidine and developed bilateral lower extremity swelling and associated palpitations. Patient was admitted for bilateral lower extremity edema. She was seen by cardiology. Echocardiogram done; EF estimated at 55%. Swelling most likely due to clonidine. Patient has a history of hypothyroidism; TSH was normal. Patient was cleared for discharge and will follow-up with PCP. Clonidine was discontinued. There were no complaints or new complaints upon discharge, all questions and concerns were answered. Patient was advised to return to the ER or call 911 if any headaches, dizziness, shortness of breath, chest pain, bleeding, fevers, or worsening of medical condition. Patient/Family was counseled about treatment plan, medications, possible side effects, patientverbalized understanding. All questions were answered to the best of my ability. The patient symptoms improved and they are okay to be DC. Condition at Discharge: Stable Final Diagnosis/Problems List Lower extremity swelling rule out CHF likely from adverse medication reaction Hypothyroidism Hypertension Morbid obesity Discharge Disposition: Home Discharge Instruct/Medications Diet: Cardiac 2g Na,low cholest Activity: No Restrictions, As Tolerated Follow Up/Referral: pcp 1 week Discharge Statement: "Patient was advised to return to the ER or call 911 if any headaches, dizziness, shortness of breath, chest pain, abdominal pain, bleeding, fevers, or worsening of medical condition. Patient was counseled about treatment plan, medications, possible side effects, patientverbalized understanding. All questions were answered to the best of my ability. This discharge took greater then 30 minutes in planning, reviewing documentation, counseling the patient, and discussing with other team members." ASSESSMENT ASSESSMENT Assessment Lower leg swelling [employer] Oct 15, 2024 21:50
== END 2024-10-15 18:55 | disposition home or self-care (01) | DRG 812 ==
LOC: ER 05:49 → OVERFLOW 08:10 → TELE-WESTW 23:20
PROVIDERS: ADMIT Nurse Practitioner; ATTEND Nurse Practitioner
DX: T50.995A Adverse effect of other drugs, medicaments and biological substances, initial encounter (principal); I43 Cardiomyopathy in diseases classified elsewhere; E03.9 Hypothyroidism, unspecified; E66.01 Morbid (severe) obesity due to excess calories; E11.9 Type 2 diabetes mellitus without complications; J44.9 Chronic obstructive pulmonary disease, unspecified; I10 Essential (primary) hypertension; Z68.41 Body mass index [BMI] 40.0-44.9, adult; E78.5 Hyperlipidemia, unspecified; R00.2 Palpitations; Y92.89 Other specified places as the place of occurrence of the external cause
CPT/HCPCS: 36415; 71045; 80048; 81001; 84439; 84443; 84484; 85025; 93306; 93970; 96372; G0378